=== PATIENT | female | born 1955 | race Caucasian/White ===

== ENCOUNTER → 2017-02-26 | Outpatient (CLI) | payer BC ==
[~2017-02-26] MED LIST: AMLO5TAB66 PO; CITA-50 PO; HYDR-2164 PO; LEVO125T70 PO; OMEP10CA PO; [UNRECOGNIZED DRUG - CODE] PO
== END ==
LOC: WC.BC 14:22
PROVIDERS: ATTEND Family Medicine
DX: N64.59 Other signs and symptoms in breast (principal); Z80.3 Family history of malignant neoplasm of breast
CPT/HCPCS: 76642; 77061; G0206